=== PATIENT | male | born 1955 | race Two or more races ===

== ENCOUNTER 2020-07-28 12:36 | Inpatient (IN) | payer OTHER ==
[2020-07-28] MEDS ORDERED: SODIUM CHLORIDE 1,000 ML IV STA (14:25)
[2020-07-28] MEDS ORDERED: VANCOMYCIN 1 GM in D5W (PRE-DOCKED) 1,000 MG/250 ML IVPB ONE (14:25)
[2020-07-28] MEDS ORDERED: PIPERACILLIN/TAZOB 3.375 GM 3.375 GM in DEXTROSE 5%-WATER - 50 ML IVPB ONE (14:26)
[2020-07-28] MEDS ORDERED: VANCOMYCIN 1 GRAM (PRE-DOCKED) 1,000 MG/250 ML BAG IVPB ONE (14:42)
[2020-07-28] MEDS ORDERED: PIPERACILLIN/TAZOB 3.375 GM 3.375 GM/50 ML BAG IVPB ONE (14:43)
[2020-07-28 15:06] LABS: INR 1.1 (0.83-1.09); PROTHROMBIN TIME (PATIENT) 13.5 SEC (9.7-13.0)
[2020-07-28 15:09] LABS: BASO % 0.2 % (0-2.0); HEMATOCRIT 45.8 % (35.4-49); HEMOGLOBIN 15.5 GM/dL (11.7-16.9); LYMPH % 4.1 % (8-40); MCHC 33.8 g/dl (32.0-35.9); MEAN PLT VOLUME 9.6 fl (7.5-11.1); MONO % 7.7 % (3.8-10.2); PLATELET COUNT 152 K/MM3 (134-434); RBC 5.72 M/mm3 (4.00-5.60); RDW 15.1 % (11.9-15.9)
[2020-07-28 15:20] LABS: POTASSIUM 3.7 mmol/L (3.5-5.1)
[2020-07-28 15:22] LABS: ALBUMIN 3.8 g/dl (3.4-5.0); BLOOD UREA NITROGEN 50.8 mg/dL (7-18); CALCIUM 9.8 mg/dL (8.5-10.1)
[2020-07-28 15:25] LABS: CREATININE 2.4 mg/dL (0.55-1.3)
[2020-07-28 15:27] LABS: BILIRUBIN,TOTAL 0.8 mg/dL (0.2-1)
[2020-07-28 17:46] LABS: PLATELET ESTIMATE DECREASED
[2020-07-28] MEDS ORDERED: PIPERACILLIN/TAZOB 2.25 GM 2.25 GM in DEXTROSE 5%-WATER - 50 ML IVPB SCH (21:00)
[2020-07-28] MEDS ORDERED: PIPERACILLIN/TAZOBACTAM 2.25 GM VIAL IVPB ONE (21:47)
[2020-07-28] MEDS ORDERED: DEXTROSE 5%-WATER - 50 ML IVPB ONE (21:48)
[2020-07-28] MEDS: PIPERACILLIN/TAZOB 2.25 GM 2.25 GM in DEXTROSE 5%-WATER - 50 ML IVPB SCH (22:15)
[2020-07-28] MEDS: HEPARIN NA (PORCINE) 5,000 UNITS/ML 1ML VIAL SQ SCH (22:16)
[2020-07-28] MEDS: ATORVASTATIN CA 40 MG TABLET (FP) PO SCH (22:16)
[2020-07-28] MEDS: INSULIN SLIDING SCALE (NOVOLOG) 1 VIAL SQ SCH (22:26)
[2020-07-28 23:21] VITALS: BMI 29.7
[2020-07-28 23:36] LABS: EPI CELLS 1 /uL (0-25.1); HYALINE CASTS 1 /uL (0-3.1); URINE APPEARANCE CLEAR; URINE BACTERIA 33 /uL (0-1359); URINE BILIRUBIN NEGATIVE (NEGATIVE); URINE COLOR YELLOW; URINE GLUCOSE (UA) 2+ (NEGATIVE); URINE KETONE NEGATIVE (NEGATIVE); URINE LEUK ESTERASE NEGATIVE (NEGATIVE); URINE NITRITE NEGATIVE (NEGATIVE); URINE PROTEIN 2+ (NEGATIVE); URINE RBC 8 /uL (0-23.9); URINE UROBILINOGEN 0.2 mg/dL (0.2-1.0); URINE WBC 3 /uL (0-25.8)
[2020-07-29] MEDS ORDERED: DEXTROSE 5%-WATER - 50 ML IVPB ONE ×3 (01:24→18:36)
[2020-07-29] MEDS ORDERED: PIPERACILLIN/TAZOBACTAM 2.25 GM VIAL IVPB ONE ×3 (01:24→18:36)
[2020-07-29] MEDS: PIPERACILLIN/TAZOB 2.25 GM 2.25 GM in DEXTROSE 5%-WATER - 50 ML IVPB SCH ×2 (02:53→10:32)
[2020-07-29] MEDS ORDERED: VANCOMYCIN 1,000 MG in DEXTROSE 5%-WATER - 250 ML IVPB ONE ×2 (06:00→07:00)
[2020-07-29] MEDS ORDERED: PT OWN MED DRAWER 7, Y5N ONE ×2 (06:02→10:34)
[2020-07-29] MEDS: HEPARIN NA (PORCINE) 5,000 UNITS/ML 1ML VIAL SQ SCH ×3 (06:04→21:42)
[2020-07-29] MEDS ORDERED: VANCOMYCIN 1 GRAM (PRE-DOCKED) 1,000 MG/250 ML BAG IVPB ONE (06:06)
[2020-07-29] MEDS: INSULIN SLIDING SCALE (NOVOLOG) 1 VIAL SQ SCH ×4 (06:09→21:42)
[2020-07-29 09:06] LABS: HEMATOCRIT 41.8 % (35.4-49); HEMOGLOBIN 14.7 GM/dL (11.7-16.9); MCH 27.8 pg (25.7-33.7); MCHC 35.2 g/dl (32.0-35.9); MEAN CELL VOLUME 78.9 fl (80-96); MEAN PLT VOLUME 9.5 fl (7.5-11.1); PLATELET COUNT 119 K/MM3 (134-434); RBC 5.29 M/mm3 (4.00-5.60); RDW 15.3 % (11.9-15.9); WHITE BLOOD COUNT 10.8 K/mm3 (4.0-10.0)
[2020-07-29 09:29] LABS: POTASSIUM 3.3 mmol/L (3.5-5.1)
[2020-07-29 09:50] LABS: BLOOD UREA NITROGEN 46.8 mg/dL (7-18)
[2020-07-29 09:51] LABS: CALCIUM 9.2 mg/dL (8.5-10.1)
[2020-07-29 09:54] LABS: CREATININE 2.5 mg/dL (0.55-1.3); PHOSPHOROUS 3.3 mg/dL (2.5-4.9)
[2020-07-29] MEDS ORDERED: PATIENT'S OWN MEDICATION (NON-FORMULARY) (Amlodipine Besylate/Benazepril [Amlodipine-Benaz PO SCH (10:00)
[2020-07-29] MEDS: LISINOPRIL 20 MG TABLET PO SCH (10:31)
[2020-07-29] MEDS: CARVEDILOL 3.125 MG TABLET (FP) PO SCH ×2 (10:31→21:41)
[2020-07-29] MEDS: CLOPIDOGREL BISULFATE 75 MG TABLET (FP) PO SCH (10:31)
[2020-07-29] MEDS: amLODIPine BESYLATE 10 MG TABLET (FP) PO SCH (10:31)
[2020-07-29] MEDS: CHLORTHALIDONE 25 MG TABLET PO SCH (10:35)
[2020-07-29] MEDS ORDERED: INSULIN (NOVOLOG) ASPART 100 UNITS/ML 10ML VIAL ONE (11:42)
[2020-07-29] MEDS ORDERED: POTASSIUM CHLORIDE TABS 20 MEQ TABLET.ER (FP) PO ONE (12:50)
[2020-07-29] MEDS: ATORVASTATIN CA 40 MG TABLET (FP) PO SCH (21:41)
[2020-07-30] MEDS ORDERED: PIPERACILLIN/TAZOBACTAM 2.25 GM VIAL IVPB ONE ×3 (01:02→17:07)
[2020-07-30] MEDS ORDERED: DEXTROSE 5%-WATER - 50 ML IVPB ONE ×3 (01:02→17:08)
[2020-07-30] MEDS: PIPERACILLIN/TAZOB 2.25 GM 2.25 GM in DEXTROSE 5%-WATER - 50 ML IVPB SCH ×3 (01:38→17:12)
[2020-07-30] MEDS: HEPARIN NA (PORCINE) 5,000 UNITS/ML 1ML VIAL SQ SCH ×3 (06:41→21:31)
[2020-07-30] MEDS: INSULIN SLIDING SCALE (NOVOLOG) 1 VIAL SQ SCH ×4 (06:41→21:36)
[2020-07-30 09:10] LABS: BASO % 0.6 % (0-2.0); EOS % 1.4 % (0-4.5); HEMATOCRIT 44.4 % (35.4-49); HEMOGLOBIN 15.2 GM/dL (11.7-16.9); LYMPH % 12.6 % (8-40); MCH 27.4 pg (25.7-33.7); MCHC 34.3 g/dl (32.0-35.9); MEAN CELL VOLUME 79.7 fl (80-96); MEAN PLT VOLUME 9.8 fl (7.5-11.1); MONO % 9.2 % (3.8-10.2); NEUT % 76.2 % (42.8-82.8); PLATELET COUNT 137 K/MM3 (134-434); RBC 5.57 M/mm3 (4.00-5.60); RDW 15.2 % (11.9-15.9); WHITE BLOOD COUNT 8.6 K/mm3 (4.0-10.0)
[2020-07-30] MEDS: CHLORTHALIDONE 25 MG TABLET PO SCH (09:25)
[2020-07-30] MEDS: CARVEDILOL 3.125 MG TABLET (FP) PO SCH ×2 (09:26→21:31)
[2020-07-30] MEDS: amLODIPine BESYLATE 10 MG TABLET (FP) PO SCH (09:26)
[2020-07-30] MEDS: CLOPIDOGREL BISULFATE 75 MG TABLET (FP) PO SCH (09:26)
[2020-07-30] MEDS: LISINOPRIL 20 MG TABLET PO SCH (09:26)
[2020-07-30 09:39] LABS: POTASSIUM 3.6 mmol/L (3.5-5.1)
[2020-07-30 09:54] LABS: BLOOD UREA NITROGEN 44.6 mg/dL (7-18); CALCIUM 10.2 mg/dL (8.5-10.1)
[2020-07-30 09:57] LABS: CREATININE 2.6 mg/dL (0.55-1.3)
[2020-07-30 09:58] LABS: ALBUMIN 3.6 g/dl (3.4-5.0); PHOSPHOROUS 3.1 mg/dL (2.5-4.9)
[2020-07-30 09:59] LABS: BILIRUBIN,TOTAL 2.1 mg/dL (0.2-1)
[2020-07-30 10:00] LABS: INR 1.07 (0.83-1.09); PROTHROMBIN TIME (PATIENT) 13.1 SEC (9.7-13.0)
[2020-07-30 10:02] LABS: ACTIVATED PTT 39.2 SECONDS (25.2-36.5)
[2020-07-30 10:03] LABS: TOT PROT 7.8 g/dl (6.4-8.2)
[2020-07-30] MEDS: COLLAGENASE CLOSTRIDIUM HIST. 30 GRAMS TUBE TP SCH (12:14)
[2020-07-30] MEDS: ATORVASTATIN CA 40 MG TABLET (FP) PO SCH (21:31)
[2020-07-31] MEDS ORDERED: PIPERACILLIN/TAZOBACTAM 2.25 GM VIAL IVPB ONE ×3 (00:56→18:45)
[2020-07-31] MEDS ORDERED: DEXTROSE 5%-WATER - 50 ML IVPB ONE ×3 (00:56→18:45)
[2020-07-31] MEDS: PIPERACILLIN/TAZOB 2.25 GM 2.25 GM in DEXTROSE 5%-WATER - 50 ML IVPB SCH ×4 (01:15→18:56)
[2020-07-31] MEDS: INSULIN SLIDING SCALE (NOVOLOG) 1 VIAL SQ SCH ×4 (06:34→22:02)
[2020-07-31] MEDS: HEPARIN NA (PORCINE) 5,000 UNITS/ML 1ML VIAL SQ SCH ×3 (06:34→21:52)
[2020-07-31 10:09] LABS: BASO % 0.8 % (0-2.0); HEMATOCRIT 47.4 % (35.4-49); HEMOGLOBIN 16.5 GM/dL (11.7-16.9); MCH 27.7 pg (25.7-33.7); MCHC 34.9 g/dl (32.0-35.9); MEAN CELL VOLUME 79.3 fl (80-96); MEAN PLT VOLUME 9.4 fl (7.5-11.1); MONO % 10.4 % (3.8-10.2); NEUT % 71.8 % (42.8-82.8); PLATELET COUNT 148 K/MM3 (134-434); RBC 5.98 M/mm3 (4.00-5.60); RDW 15.1 % (11.9-15.9); WHITE BLOOD COUNT 7.3 K/mm3 (4.0-10.0)
[2020-07-31] MEDS ORDERED: PT OWN MED DRAWER 7, Y5N ONE ×2 (10:15→18:54)
[2020-07-31] MEDS: CLOPIDOGREL BISULFATE 75 MG TABLET (FP) PO SCH (10:33)
[2020-07-31] MEDS: amLODIPine BESYLATE 10 MG TABLET (FP) PO SCH (10:33)
[2020-07-31] MEDS: CARVEDILOL 3.125 MG TABLET (FP) PO SCH ×2 (10:33→21:52)
[2020-07-31] MEDS: LISINOPRIL 20 MG TABLET PO SCH (10:33)
[2020-07-31] MEDS: CHLORTHALIDONE 25 MG TABLET PO SCH (10:34)
[2020-07-31 10:55] LABS: BLOOD UREA NITROGEN 42.8 mg/dL (7-18)
[2020-07-31 10:57] LABS: CALCIUM 10.5 mg/dL (8.5-10.1)
[2020-07-31 10:58] LABS: CREATININE 2.6 mg/dL (0.55-1.3); PHOSPHOROUS 3.6 mg/dL (2.5-4.9)
[2020-07-31] MEDS: COLLAGENASE CLOSTRIDIUM HIST. 30 GRAMS TUBE TP SCH (16:58)
[2020-07-31] MEDS: ATORVASTATIN CA 40 MG TABLET (FP) PO SCH (21:52)
[2020-08-01] MEDS ORDERED: DEXTROSE 5%-WATER - 50 ML IVPB ONE ×3 (02:50→17:02)
[2020-08-01] MEDS ORDERED: PIPERACILLIN/TAZOBACTAM 2.25 GM VIAL IVPB ONE ×4 (02:50→18:04)
[2020-08-01] MEDS: PIPERACILLIN/TAZOB 2.25 GM 2.25 GM in DEXTROSE 5%-WATER - 50 ML IVPB SCH ×3 (02:56→19:17)
[2020-08-01] MEDS: INSULIN SLIDING SCALE (NOVOLOG) 1 VIAL SQ SCH ×4 (06:26→22:21)
[2020-08-01] MEDS: HEPARIN NA (PORCINE) 5,000 UNITS/ML 1ML VIAL SQ SCH ×3 (06:26→22:21)
[2020-08-01 10:00] LABS: BASO % 1.1 % (0-2.0); EOS % 2.3 % (0-4.5); HEMATOCRIT 45.4 % (35.4-49); HEMOGLOBIN 15.6 GM/dL (11.7-16.9); LYMPH % 12.3 % (8-40); MCH 27.4 pg (25.7-33.7); MCHC 34.3 g/dl (32.0-35.9); MEAN CELL VOLUME 79.8 fl (80-96); MEAN PLT VOLUME 9.4 fl (7.5-11.1); MONO % 8.6 % (3.8-10.2); NEUT % 75.7 % (42.8-82.8); PLATELET COUNT 156 K/MM3 (134-434); RDW 14.8 % (11.9-15.9); WHITE BLOOD COUNT 7.3 K/mm3 (4.0-10.0)
[2020-08-01] MEDS: CARVEDILOL 3.125 MG TABLET (FP) PO SCH (10:13)
[2020-08-01] MEDS: LISINOPRIL 20 MG TABLET PO SCH (10:13)
[2020-08-01] MEDS: amLODIPine BESYLATE 10 MG TABLET (FP) PO SCH (10:13)
[2020-08-01] MEDS: CLOPIDOGREL BISULFATE 75 MG TABLET (FP) PO SCH (10:13)
[2020-08-01] MEDS: CHLORTHALIDONE 25 MG TABLET PO SCH (10:17)
[2020-08-01 10:27] LABS: CALCIUM 9.6 mg/dL (8.5-10.1)
[2020-08-01 10:28] LABS: ALBUMIN 3.4 g/dl (3.4-5.0); BLOOD UREA NITROGEN 47.4 mg/dL (7-18); MAGNESIUM 1.9 mg/dL (1.8-2.4)
[2020-08-01 10:29] LABS: CREATININE 2.9 mg/dL (0.55-1.3); PHOSPHOROUS 3.3 mg/dL (2.5-4.9)
[2020-08-01 10:31] LABS: TOT PROT 7.9 g/dl (6.4-8.2)
[2020-08-01 10:35] LABS: BILIRUBIN,TOTAL 0.8 mg/dL (0.2-1)
[2020-08-01] MEDS: COLLAGENASE CLOSTRIDIUM HIST. 30 GRAMS TUBE TP SCH (10:40)
[2020-08-01] MEDS ORDERED: SODIUM CHLORIDE 0.45% 1,000 ML IV SCH (10:45)
[2020-08-01] MEDS: CARVEDILOL 6.25 MG TABLET (FP) PO SCH (22:20)
[2020-08-01] MEDS: ATORVASTATIN CA 40 MG TABLET (FP) PO SCH (22:20)
[2020-08-02] MEDS ORDERED: PIPERACILLIN/TAZOBACTAM 2.25 GM VIAL IVPB ONE ×3 (02:58→17:18)
[2020-08-02] MEDS ORDERED: DEXTROSE 5%-WATER - 50 ML IVPB ONE ×3 (02:58→17:19)
[2020-08-02] MEDS: PIPERACILLIN/TAZOB 2.25 GM 2.25 GM in DEXTROSE 5%-WATER - 50 ML IVPB SCH ×3 (03:00→17:30)
[2020-08-02] MEDS: HEPARIN NA (PORCINE) 5,000 UNITS/ML 1ML VIAL SQ SCH ×3 (06:43→21:05)
[2020-08-02] MEDS: INSULIN SLIDING SCALE (NOVOLOG) 1 VIAL SQ SCH ×4 (06:45→21:06)
[2020-08-02] MEDS ORDERED: PT OWN MED DRAWER 7, Y5N ONE ×3 (08:37→20:37)
[2020-08-02] MEDS: amLODIPine BESYLATE 10 MG TABLET (FP) PO SCH ×2 (08:45→10:14)
[2020-08-02] MEDS: CLOPIDOGREL BISULFATE 75 MG TABLET (FP) PO SCH ×2 (08:45→10:14)
[2020-08-02] MEDS: CARVEDILOL 6.25 MG TABLET (FP) PO SCH ×3 (08:45→21:06)
[2020-08-02 09:21] LABS: EOS % 3.1 % (0-4.5); HEMATOCRIT 47.9 % (35.4-49); HEMOGLOBIN 16.6 GM/dL (11.7-16.9); MCH 27.5 pg (25.7-33.7); MCHC 34.6 g/dl (32.0-35.9); MEAN CELL VOLUME 79.7 fl (80-96); MONO % 9.6 % (3.8-10.2); NEUT % 70.3 % (42.8-82.8); PLATELET COUNT 160 K/MM3 (134-434); RBC 6.01 M/mm3 (4.00-5.60); WHITE BLOOD COUNT 7.8 K/mm3 (4.0-10.0)
[2020-08-02 09:49] LABS: INR 1.07 (0.83-1.09); POTASSIUM 3.8 mmol/L (3.5-5.1); PROTHROMBIN TIME (PATIENT) 12.9 SEC (9.7-13.0)
[2020-08-02 09:52] LABS: ACTIVATED PTT 42.4 SECONDS (25.2-36.5)
[2020-08-02 10:07] LABS: ALBUMIN 3.8 g/dl (3.4-5.0); BLOOD UREA NITROGEN 45.9 mg/dL (7-18)
[2020-08-02 10:08] LABS: MAGNESIUM 2.1 mg/dL (1.8-2.4)
[2020-08-02 10:10] LABS: CREATININE 2.6 mg/dL (0.55-1.3)
[2020-08-02 10:11] LABS: BILIRUBIN,TOTAL 0.8 mg/dL (0.2-1); TOT PROT 8.7 g/dl (6.4-8.2)
[2020-08-02] MEDS: COLLAGENASE CLOSTRIDIUM HIST. 30 GRAMS TUBE TP SCH (10:14)
[2020-08-02] MEDS: ATORVASTATIN CA 40 MG TABLET (FP) PO SCH (21:06)
[2020-08-03] MEDS ORDERED: PIPERACILLIN/TAZOBACTAM 2.25 GM VIAL IVPB ONE ×3 (00:31→17:29)
[2020-08-03] MEDS ORDERED: DEXTROSE 5%-WATER - 50 ML IVPB ONE ×3 (00:32→17:29)
[2020-08-03] MEDS: PIPERACILLIN/TAZOB 2.25 GM 2.25 GM in DEXTROSE 5%-WATER - 50 ML IVPB SCH ×3 (01:05→17:54)
[2020-08-03] MEDS: amLODIPine BESYLATE 10 MG TABLET (FP) PO SCH ×3 (05:57→10:00)
[2020-08-03] MEDS: HEPARIN NA (PORCINE) 5,000 UNITS/ML 1ML VIAL SQ SCH (05:58)
[2020-08-03] MEDS: INSULIN SLIDING SCALE (NOVOLOG) 1 VIAL SQ SCH ×4 (06:19→22:18)
[2020-08-03] MEDS: CARVEDILOL 6.25 MG TABLET (FP) PO SCH ×3 (08:55→22:18)
[2020-08-03] MEDS: CLOPIDOGREL BISULFATE 75 MG TABLET (FP) PO SCH (09:01)
[2020-08-03] MEDS: COLLAGENASE CLOSTRIDIUM HIST. 30 GRAMS TUBE TP SCH (09:02)
[2020-08-03 09:12] LABS: POTASSIUM 3.7 mmol/L (3.5-5.1)
[2020-08-03 09:17] LABS: CALCIUM 9.7 mg/dL (8.5-10.1)
[2020-08-03 09:18] LABS: BLOOD UREA NITROGEN 44.7 mg/dL (7-18)
[2020-08-03 09:21] LABS: CREATININE 2.6 mg/dL (0.55-1.3)
[2020-08-03] MEDS ORDERED: FUROSEMIDE 40 MG TABLET (FP) PO SCH (10:45)
[2020-08-03] MEDS ORDERED: LIDOCAINE HCL 1%, 10 MG/ML (20ML VIAL) ONE (11:20)
[2020-08-03] MEDS ORDERED: ONDANSETRON 4 MG/2 ML VIAL IVPUSH PRN ×2 (11:57→13:29)
[2020-08-03] MEDS ORDERED: ACETAMINOPHEN 325 MG TABLET (FP) PO PRN (11:57)
[2020-08-03] MEDS ORDERED: LACTATED RINGERS SOLUTION 1,000 ML IV SCH (12:00)
[2020-08-03] MEDS ORDERED: PROPOFOL 20 ML ONE (12:08)
[2020-08-03] MEDS ORDERED: MIDAZOLAM HCL 2 MG/2 ML SINGLE DOSE VIAL ONE (12:08)
[2020-08-03] MEDS ORDERED: LIDOCAINE HCL/PF 2% SDV 5ML VIAL ONE (12:08)
[2020-08-03] MEDS ORDERED: BUPIVACAINE HCL 0.5% 250 MG/50 ML VIAL IJ ONE (12:17)
[2020-08-03] MEDS ORDERED: LIDOCAINE HCL 1% PRESERVATIVE FREE - 30ML VIAL IJ ONE (12:17)
[2020-08-03] MEDS: LACTATED RINGERS SOLUTION 1,000 ML IV SCH (14:00)
[2020-08-03 14:39] LABS: EOS % 1.9 % (0-4.5); HEMATOCRIT 44.5 % (35.4-49); HEMOGLOBIN 15.1 GM/dL (11.7-16.9); MCHC 33.9 g/dl (32.0-35.9); MEAN CELL VOLUME 79.8 fl (80-96); MONO % 10.6 % (3.8-10.2); NEUT % 73.5 % (42.8-82.8); PLATELET COUNT 153 K/MM3 (134-434); RBC 5.58 M/mm3 (4.00-5.60); RDW 14.9 % (11.9-15.9); WHITE BLOOD COUNT 8.5 K/mm3 (4.0-10.0)
[2020-08-03] MEDS: ATORVASTATIN CA 40 MG TABLET (FP) PO SCH (22:18)
[2020-08-04] MEDS ORDERED: PIPERACILLIN/TAZOBACTAM 2.25 GM VIAL IVPB ONE ×2 (01:09→09:46)
[2020-08-04] MEDS ORDERED: DEXTROSE 5%-WATER - 50 ML IVPB ONE ×2 (01:09→09:46)
[2020-08-04] MEDS: PIPERACILLIN/TAZOB 2.25 GM 2.25 GM in DEXTROSE 5%-WATER - 50 ML IVPB SCH (01:25)
[2020-08-04] MEDS: LACTATED RINGERS SOLUTION 1,000 ML IV SCH (05:31)
[2020-08-04] MEDS: INSULIN SLIDING SCALE (NOVOLOG) 1 VIAL SQ SCH ×4 (06:48→22:26)
[2020-08-04 09:27] LABS: HEMATOCRIT 44.3 % (35.4-49); HEMOGLOBIN 15.3 GM/dL (11.7-16.9); MCH 27.6 pg (25.7-33.7); MCHC 34.5 g/dl (32.0-35.9); MEAN CELL VOLUME 79.8 fl (80-96); MEAN PLT VOLUME 9.2 fl (7.5-11.1); PLATELET COUNT 136 K/MM3 (134-434); RBC 5.55 M/mm3 (4.00-5.60); RDW 14.8 % (11.9-15.9); WHITE BLOOD COUNT 9.9 K/mm3 (4.0-10.0)
[2020-08-04 09:53] LABS: POTASSIUM 3.7 mmol/L (3.5-5.1)
[2020-08-04] MEDS ORDERED: amLODIPine BESYLATE 10 MG TABLET (FP) PO SCH (10:00)
[2020-08-04 10:25] LABS: ALBUMIN 3.4 g/dl (3.4-5.0); CALCIUM 9.8 mg/dL (8.5-10.1)
[2020-08-04 10:26] LABS: BLOOD UREA NITROGEN 38.1 mg/dL (7-18)
[2020-08-04 10:29] LABS: CREATININE 2.5 mg/dL (0.55-1.3)
[2020-08-04 10:30] LABS: BILIRUBIN,TOTAL 0.6 mg/dL (0.2-1); TOT PROT 7.6 g/dl (6.4-8.2)
[2020-08-04] MEDS: CARVEDILOL 6.25 MG TABLET (FP) PO SCH ×2 (10:45→22:26)
[2020-08-04] MEDS: FUROSEMIDE 40 MG TABLET (FP) PO SCH (10:46)
[2020-08-04] MEDS ORDERED: INSULIN (NOVOLOG) ASPART 100 UNITS/ML 10ML VIAL ONE (11:44)
[2020-08-04] MEDS: COLLAGENASE CLOSTRIDIUM HIST. 30 GRAMS TUBE TP SCH (17:53)
[2020-08-04] MEDS: LISINOPRIL 20 MG TABLET PO SCH (18:00)
[2020-08-04] MEDS: ATORVASTATIN CA 40 MG TABLET (FP) PO SCH (22:26)
[2020-08-05] MEDS: INSULIN SLIDING SCALE (NOVOLOG) 1 VIAL SQ SCH ×4 (06:34→22:12)
[2020-08-05 09:51] LABS: POTASSIUM 3.8 mmol/L (3.5-5.1)
[2020-08-05] MEDS: FUROSEMIDE 40 MG TABLET (FP) PO SCH (09:59)
[2020-08-05] MEDS: CARVEDILOL 12.5 MG TABLET (FP) PO SCH ×2 (09:59→22:12)
[2020-08-05] MEDS: LISINOPRIL 20 MG TABLET PO SCH (10:00)
[2020-08-05] MEDS: COLLAGENASE CLOSTRIDIUM HIST. 30 GRAMS TUBE TP SCH (10:09)
[2020-08-05 10:48] LABS: CALCIUM 10.6 mg/dL (8.5-10.1)
[2020-08-05 10:49] LABS: BLOOD UREA NITROGEN 44.6 mg/dL (7-18)
[2020-08-05 10:53] LABS: CREATININE 2.5 mg/dL (0.55-1.3)
[2020-08-05] MEDS ORDERED: INSULIN (NOVOLOG) ASPART 100 UNITS/ML 10ML VIAL ONE ×2 (11:05→17:00)
[2020-08-05] MEDS: ATORVASTATIN CA 40 MG TABLET (FP) PO SCH (22:12)
[2020-08-06 06:08] LABS: HEP B CORE AB, TOT Negative (Negative)
[2020-08-06] MEDS: INSULIN SLIDING SCALE (NOVOLOG) 1 VIAL SQ SCH ×4 (06:25→21:38)
[2020-08-06] MEDS: LISINOPRIL 20 MG TABLET PO SCH ×2 (08:35→12:29)
[2020-08-06] MEDS: CARVEDILOL 12.5 MG TABLET (FP) PO SCH ×3 (08:36→21:35)
[2020-08-06] MEDS: FUROSEMIDE 40 MG TABLET (FP) PO SCH ×2 (08:36→12:29)
[2020-08-06] MEDS: COLLAGENASE CLOSTRIDIUM HIST. 30 GRAMS TUBE TP SCH (13:22)
[2020-08-06] MEDS: ACETAMINOPHEN 325 MG TABLET (FP) PO PRN (18:55)
[2020-08-06] MEDS: ATORVASTATIN CA 40 MG TABLET (FP) PO SCH (21:35)
[2020-08-06] MEDS: INSULIN (LEVEMIR) 100 UNITS/ML UNITS SQ SCH (21:37)
[2020-08-07] MEDS: INSULIN SLIDING SCALE (NOVOLOG) 1 VIAL SQ SCH ×4 (06:35→21:46)
[2020-08-07] MEDS: INSULIN (LEVEMIR) 100 UNITS/ML UNITS SQ SCH ×2 (06:35→21:48)
[2020-08-07] MEDS: ACETAMINOPHEN 325 MG TABLET (FP) PO PRN (06:56)
[2020-08-07] MEDS ORDERED: INSULIN (LEVEMIR) 100 UNITS/ML UNITS SQ ONE (07:00)
[2020-08-07] MEDS: CARVEDILOL 12.5 MG TABLET (FP) PO SCH ×2 (10:30→21:46)
[2020-08-07] MEDS: FUROSEMIDE 40 MG TABLET (FP) PO SCH (10:30)
[2020-08-07] MEDS: LISINOPRIL 20 MG TABLET PO SCH (10:30)
[2020-08-07] MEDS: COLLAGENASE CLOSTRIDIUM HIST. 30 GRAMS TUBE TP SCH (13:16)
[2020-08-07] MEDS: ATORVASTATIN CA 40 MG TABLET (FP) PO SCH (21:46)
[2020-08-08] MEDS: INSULIN (LEVEMIR) 100 UNITS/ML UNITS SQ SCH ×2 (06:14→22:37)
[2020-08-08] MEDS: INSULIN SLIDING SCALE (NOVOLOG) 1 VIAL SQ SCH ×4 (06:15→22:37)
[2020-08-08] MEDS: LISINOPRIL 20 MG TABLET PO SCH (09:22)
[2020-08-08] MEDS: FUROSEMIDE 40 MG TABLET (FP) PO SCH (09:22)
[2020-08-08] MEDS: CARVEDILOL 12.5 MG TABLET (FP) PO SCH ×2 (09:22→22:36)
[2020-08-08] MEDS: COLLAGENASE CLOSTRIDIUM HIST. 30 GRAMS TUBE TP SCH (11:13)
[2020-08-08] MEDS: ATORVASTATIN CA 40 MG TABLET (FP) PO SCH (22:37)
[2020-08-09] MEDS: INSULIN (LEVEMIR) 100 UNITS/ML UNITS SQ SCH (06:49)
[2020-08-09] MEDS: INSULIN SLIDING SCALE (NOVOLOG) 1 VIAL SQ SCH ×2 (06:49→11:19)
[2020-08-09] MEDS ORDERED: INSULIN (NOVOLOG) ASPART 100 UNITS/ML 10ML VIAL ONE ×2 (06:59→11:18)
[2020-08-09] MEDS ORDERED: INSULIN (LEVEMIR) 100 UNITS/ML UNITS SQ ONE (06:59)
[2020-08-09 09:20] LABS: POTASSIUM 3.7 mmol/L (3.5-5.1)
[2020-08-09 09:37] LABS: ALBUMIN 3.7 g/dl (3.4-5.0); BLOOD UREA NITROGEN 64.3 mg/dL (7-18); CALCIUM 10.1 mg/dL (8.5-10.1); MAGNESIUM 2.1 mg/dL (1.8-2.4)
[2020-08-09 09:40] LABS: CREATININE 2.8 mg/dL (0.55-1.3); PHOSPHOROUS 4.2 mg/dL (2.5-4.9)
[2020-08-09 09:42] LABS: BILIRUBIN,TOTAL 0.6 mg/dL (0.2-1); TOT PROT 8.8 g/dl (6.4-8.2)
[2020-08-09] MEDS ORDERED: PT OWN MED DRAWER 7, Y5N ONE (09:46)
[2020-08-09] MEDS: LISINOPRIL 20 MG TABLET PO SCH (09:50)
[2020-08-09] MEDS: FUROSEMIDE 40 MG TABLET (FP) PO SCH (09:51)
[2020-08-09] MEDS: CARVEDILOL 12.5 MG TABLET (FP) PO SCH (09:51)
[2020-08-09] MEDS: COLLAGENASE CLOSTRIDIUM HIST. 30 GRAMS TUBE TP SCH (09:56)
[2020-08-09 12:05] LABS: BASO % 1.3 % (0-2.0); EOS % 1.7 % (0-4.5); HEMATOCRIT 45.7 % (35.4-49); LYMPH % 16.2 % (8-40); MCH 27.8 pg (25.7-33.7); MEAN CELL VOLUME 79.4 fl (80-96); MONO % 8.3 % (3.8-10.2); NEUT % 72.5 % (42.8-82.8); PLATELET COUNT 176 K/MM3 (134-434); RBC 5.76 M/mm3 (4.00-5.60); RDW 15.1 % (11.9-15.9); WHITE BLOOD COUNT 9.9 K/mm3 (4.0-10.0)
[2020-08-09 15:13] VITALS: BP 148/81; PULSE 73; TEMP 99.2
== END 2020-08-09 16:28 | DRG 629 ==
LOC: JER 12:36 → JERBED 16:49 → J6S 18:46
PROVIDERS: ADMIT Internal Medicine; ATTEND Student in an Organized Health Care Education/Training Program
PROC: 0QBN0ZZ Excision of Right Metatarsal, Open Approach (ICD-10-PCS; principal; 2020-08-03 11:00)
DX: E11.621 Type 2 diabetes mellitus with foot ulcer (principal); L03.115 Cellulitis of right lower limb; L97.818 Non-pressure chronic ulcer of other part of right lower leg with other specified severity; N17.9 Acute kidney failure, unspecified; I25.10 Atherosclerotic heart disease of native coronary artery without angina pectoris; I10 Essential (primary) hypertension; E78.5 Hyperlipidemia, unspecified; E11.51 Type 2 diabetes mellitus with diabetic peripheral angiopathy without gangrene; I12.9 Hypertensive chronic kidney disease with stage 1 through stage 4 chronic kidney disease, or unspecified chronic kidney disease; E11.22 Type 2 diabetes mellitus with diabetic chronic kidney disease; N18.30 Chronic kidney disease, stage 3 unspecified; R94.31 Abnormal electrocardiogram [ECG] [EKG]; N28.1 Cyst of kidney, acquired; M89.9 Disorder of bone, unspecified; Z89.429 Acquired absence of other toe(s), unspecified side
CPT/HCPCS: 36415; 71046-TC-FY; 73630-TC-RT-FY; 76775-TC; 80048; 80053; 81003; 82565; 82962; 83036; 83605; 83735; 84100; 84540; 85025; 85027; 85610; 85651; 85730; 86038; 86140; 86704; 86803; 86850; 86900; 86901; 87040; 87086; 87340; 93005; 93010; 93306-TC; 94760; 97116-GP; 97162-GP; 99285-25; C9803; G0463-25; J1644; U0003

== ENCOUNTER 2021-02-23 04:30 | Day surgery (SDC) | payer OTHER ==
[2021-02-17 16:42] VITALS: BMI 33.8
[~2021-02-23 04:30] MED LIST: ACETAMINOPHEN 325 MG TABLET (FP) PO PRN
[2021-02-23] MEDS ORDERED: EPINEPHrine/PF 1 MG/1 ML (1:1,000) AMPULE ONE (07:16)
[2021-02-23] MEDS ORDERED: BUPIVACAINE HCL/PF 0.75% 10 ML VIAL ONE (07:16)
[2021-02-23] MEDS ORDERED: POVIDONE-IODINE 5% OPHTHALMIC PREP 30 ML SOLUTION ONE (07:17)
[2021-02-23] MEDS ORDERED: LIDOCAINE HCL/PF 2% SDV 5ML VIAL ONE (07:17)
[2021-02-23] MEDS ORDERED: TETRACAINE 0.5% OPHTH SOLN 2 ML BOTTLE ONE (07:17)
[2021-02-23] MEDS ORDERED: BSS (NA/CA/MG/K) BALANCED SALT SOLUTION OPHTH SOLN 15 ML BOTTLE ONE (07:17)
[2021-02-23] MEDS ORDERED: LIDOCAINE HCL/PF 1% SDV 5ML VIAL ONE (07:17)
[2021-02-23] MEDS ORDERED: MIDAZOLAM HCL 2 MG/2 ML SINGLE DOSE VIAL ONE (07:36)
[2021-02-23] MEDS ORDERED: TETRACAINE 0.5% OPHTH SOLN 2 ML BOTTLE OS ONE ×2 (07:43→10:29)
[2021-02-23] MEDS ORDERED: POVIDONE-IODINE 5% OPHTHALMIC PREP 30 ML SOLUTION OS ONE ×2 (07:43→10:31)
[2021-02-23] MEDS ORDERED: LIDOCAINE HCL 1% PRESERVATIVE FREE - 30ML VIAL IO ONE ×2 (07:43→10:36)
[2021-02-23] MEDS ORDERED: BSS (NA/CA/MG/K) BALANCED SALT SOLUTION OPHTH SOLN 15 ML BOTTLE IO ONE ×2 (07:44→10:40)
[2021-02-23] MEDS ORDERED: CHONDROITIN SU A/HYALUR SOD 1 KIT IO ONE ×2 (07:44→10:48)
[2021-02-23] MEDS ORDERED: EPINEPHrine/PF 1 MG/1 ML (1:1,000) AMPULE SQ ONE ×2 (07:44→10:55)
[2021-02-23] MEDS ORDERED: OFLOXACIN 0.3% OPHTHALMIC SOLUTION 5 ML BOTTLE ONE (08:23)
[2021-02-23] MEDS ORDERED: TROPICAMIDE 1% OPHTH SOLN 15 ML BOTTLE ONE (08:23)
[2021-02-23] MEDS ORDERED: PHENYLEPHRINE 2.5% OPTHALMIC DROP BOTTLE ONE (08:24)
[2021-02-23] MEDS ORDERED: KETOROLAC TROMETHAMINE 0.5% EYE DROP 1 DROP DROPS ONE (08:24)
[2021-02-23] MEDS ORDERED: CYCLOPENTOLATE HCL 1% OPHTH SOLN 2 ML BOTTLE ONE (08:24)
[2021-02-23] MEDS: OFLOXACIN 0.3% OPHTHALMIC SOLUTION 5 ML BOTTLE OP SCH ×3 (08:35→08:53)
[2021-02-23] MEDS: PHENYLEPHRINE 2.5% OPHTH SOLN 15 ML BOTTLE OP SCH ×3 (08:35→08:53)
[2021-02-23] MEDS: CYCLOPENTOLATE HCL 1% OPHTH SOLN 2 ML BOTTLE OP SCH ×3 (08:35→08:53)
[2021-02-23] MEDS: TROPICAMIDE 1% OPHTH SOLN 15 ML BOTTLE OP SCH ×3 (08:35→08:54)
[2021-02-23] MEDS: KETOROLAC TROMETHAMINE 0.5% EYE DROP 1 DROP DROPS OP SCH ×3 (08:35→08:53)
[2021-02-23] MEDS ORDERED: TRYPAN BLUE 0.5 ML DISP.SYRIN IO ONE (10:39)
[2021-02-23 11:58] VITALS: BP 143/79; PULSE 72; TEMP 98.1
== END 2021-02-23 12:00 | disposition home or self-care (01) ==
LOC: JASU-SURG 04:30
PROVIDERS: ATTEND Ophthalmology
PROC: 08RK3JZ Replacement of Left Lens with Synthetic Substitute, Percutaneous Approach (ICD-10-PCS; principal; 2021-02-23 10:00)
DX: H26.9 Unspecified cataract (principal)
CPT/HCPCS: 82962

== ENCOUNTER 2021-03-09 04:45 | Day surgery (SDC) | payer OTHER ==
[2021-03-08 16:00] VITALS: BMI 33.6
[~2021-03-09 04:45] MED LIST changes: +BSS (NA/CA/MG/K) BALANCED SALT SOLUTION OPHTH SOLN 15 ML BOTTLE OD ONE; +CHONDROITIN SU A/HYALUR SOD 1 KIT IO ONE; +EPINEPHrine/PF 1 MG/1 ML (1:1,000) AMPULE IO ONE; +LIDOCAINE HCL 1% PRESERVATIVE FREE - 30ML VIAL IO ONE; +POVIDONE-IODINE 5% OPHTHALMIC PREP 30 ML SOLUTION OD ONE; +TETRACAINE 0.5% OPHTH SOLN 2 ML BOTTLE OD ONE
[2021-03-09] MEDS ORDERED: EPINEPHrine/PF 1 MG/1 ML (1:1,000) AMPULE ONE (07:28)
[2021-03-09] MEDS ORDERED: BUPIVACAINE HCL/PF 0.75% 10 ML VIAL ONE (07:29)
[2021-03-09] MEDS ORDERED: LIDOCAINE HCL/PF 2% SDV 5ML VIAL ONE ×2 (07:29→10:05)
[2021-03-09] MEDS ORDERED: POVIDONE-IODINE 5% OPHTHALMIC PREP 30 ML SOLUTION ONE (07:29)
[2021-03-09] MEDS ORDERED: LIDOCAINE HCL/PF 1% SDV 5ML VIAL ONE (07:29)
[2021-03-09] MEDS ORDERED: TETRACAINE 0.5% OPHTH SOLN 2 ML BOTTLE ONE (07:29)
[2021-03-09] MEDS ORDERED: MIDAZOLAM HCL 2 MG/2 ML SINGLE DOSE VIAL ONE (07:48)
[2021-03-09] MEDS: OFLOXACIN 0.3% OPHTHALMIC SOLUTION 5 ML BOTTLE OP SCH ×3 (08:21→08:51)
[2021-03-09] MEDS: KETOROLAC TROMETHAMINE 0.5% EYE DROP 1 DROP DROPS OP SCH ×3 (08:21→08:51)
[2021-03-09] MEDS: CYCLOPENTOLATE HCL 1% OPHTH SOLN 2 ML BOTTLE OP SCH ×3 (08:21→08:51)
[2021-03-09] MEDS: PHENYLEPHRINE 2.5% OPHTH SOLN 15 ML BOTTLE OP SCH ×3 (08:22→08:51)
[2021-03-09] MEDS: TROPICAMIDE 1% OPHTH SOLN 15 ML BOTTLE OP SCH ×3 (08:22→08:52)
[2021-03-09] MEDS ORDERED: PROPOFOL 20 ML ONE (10:03)
[2021-03-09] MEDS ORDERED: GLYCOPYRROLATE 0.2 MG/1 ML VIAL ONE (10:05)
[2021-03-09] MEDS ORDERED: LIDOCAINE HCL/PF 2% SDV 5ML VIAL INF ONE (10:12)
[2021-03-09] MEDS ORDERED: BUPIVACAINE HCL/PF 0.75% 10 ML VIAL RB ONE (10:12)
[2021-03-09] MEDS ORDERED: POVIDONE-IODINE 5% OPHTHALMIC PREP 30 ML SOLUTION OD ONE (10:18)
[2021-03-09] MEDS ORDERED: BSS (NA/CA/MG/K) BALANCED SALT SOLUTION OPHTH SOLN 15 ML BOTTLE OD ONE (10:25)
[2021-03-09] MEDS ORDERED: LIDOCAINE HCL 1% PRESERVATIVE FREE - 30ML VIAL IO ONE (10:26)
[2021-03-09] MEDS ORDERED: TRYPAN BLUE 0.5 ML DISP.SYRIN IO ONE (10:27)
[2021-03-09] MEDS ORDERED: CHONDROITIN SU A/HYALUR SOD 1 KIT IO ONE (10:27)
[2021-03-09] MEDS ORDERED: EPINEPHrine/PF 1 MG/1 ML (1:1,000) AMPULE IO ONE (10:30)
[2021-03-09 11:39] VITALS: BP 149/89; PULSE 87; TEMP 98.1
== END 2021-03-09 11:41 | disposition home or self-care (01) ==
LOC: JASU-SURG 04:45
PROVIDERS: ATTEND Ophthalmology
PROC: 08RJ3JZ Replacement of Right Lens with Synthetic Substitute, Percutaneous Approach (ICD-10-PCS; principal; 2021-03-09 10:00)
DX: H26.9 Unspecified cataract (principal)
CPT/HCPCS: 82962

== ENCOUNTER 2024-03-13 04:17 | Day surgery (SDC) | payer OTHER ==
[2024-03-10 12:52] VITALS: BMI 33.8
[2024-03-13] MEDS ORDERED: LIDOCAINE HCL 1%, 10 MG/ML (20ML VIAL) ONE (07:37)
[2024-03-13] MEDS ORDERED: HEPARIN NA (PORCINE) 5,000 UNITS/ML 1ML VIAL ONE (07:37)
[2024-03-13] MEDS ORDERED: MIDAZOLAM HCL 2 MG/2 ML SINGLE DOSE VIAL ONE (07:57)
[2024-03-13] MEDS: ceFAZolin SODIUM 1 GM VIAL IVPB ONE ×2 (08:35)
[2024-03-13] MEDS: LIDOCAINE HCL 1%, 10 MG/ML (50 mL VIAL) INF ONE ×2 (08:41)
[2024-03-13] MEDS ORDERED: NITROGLYCERIN 50 MG/10 ML VIAL IVPB ONE (09:22)
[2024-03-13] MEDS ORDERED: ONDANSETRON 4 MG/2 ML VIAL IVPUSH PRN (09:47)
[2024-03-13] MEDS ORDERED: oxyCODONE HCL 5 MG TABLET PO PRN (09:47)
[2024-03-13] MEDS ORDERED: LACTATED RINGERS SOLUTION 1,000 ML IV SCH (10:00)
[2024-03-13 11:29] VITALS: RESP 16; TEMP 97.7
[2024-03-13 12:46] VITALS: BP 150/78; PULSE 64
== END 2024-03-13 12:47 | disposition home or self-care (01) ==
LOC: JASU-SURG 04:17
PROVIDERS: ATTEND Surgery
PROC: 04HK3DZ Insertion of Intraluminal Device into Right Femoral Artery, Percutaneous Approach (ICD-10-PCS; 2024-03-13)
PROC: B40FYZZ Plain Radiography of Right Lower Extremity Arteries using Other Contrast (ICD-10-PCS; principal; 2024-03-13 08:00)
DX: I73.9 Peripheral vascular disease, unspecified (principal); E13.621 Other specified diabetes mellitus with foot ulcer; L97.519 Non-pressure chronic ulcer of other part of right foot with unspecified severity; N18.9 Chronic kidney disease, unspecified; E11.22 Type 2 diabetes mellitus with diabetic chronic kidney disease
CPT/HCPCS: 76000-TC-FY; 82962; 94760; C1760; C1769; J1644

== ENCOUNTER 2024-07-30 12:00 | Inpatient (IN) | payer OTHER ==
[2024-07-30] MEDS ORDERED: PIPERACILLIN/TAZOB 2.25 GM 2.25 GM/50 ML BAG IVPB ONE (13:02)
[2024-07-30] MEDS: PIPERACILLIN/TAZOB 2.25 GM 2.25 GM/50 ML BAG IVPB SCH ×2 (13:43→22:47)
[2024-07-30 13:56] LABS: HEMATOCRIT 46.9 % (35.4-49); HEMOGLOBIN 15.8 GM/dL (11.7-16.9); MCH 26.9 pg (25.7-33.7); MCHC 33.7 g/dl (32.0-35.9); MEAN CELL VOLUME 79.9 fl (80-96); MEAN PLT VOLUME 8.9 fl (7.5-11.1); PLATELET COUNT 131 10^3/uL (134-434); RBC 5.87 M/mm3 (4.00-5.60); RDW 15.5 % (11.9-15.9); WHITE BLOOD COUNT 11.8 K/mm3 (4.0-10.0)
[2024-07-30 14:21] LABS: POTASSIUM 3.7 mmol/L (3.5-5.1)
[2024-07-30 14:23] LABS: CALCIUM 9.8 mg/dL (8.5-10.1)
[2024-07-30 14:24] LABS: ALBUMIN 3.1 g/dl (3.4-5.0); BLOOD UREA NITROGEN 39.4 mg/dL (7-18)
[2024-07-30 14:27] LABS: CREATININE 2.2 mg/dL (0.55-1.3)
[2024-07-30 14:28] LABS: BILIRUBIN,TOTAL 0.9 mg/dL (0.2-1); TOT PROT 7.1 g/dl (6.4-8.2)
[2024-07-30 14:37] LABS: ERYTHROCYTE SEDIMENTATION RATE 25 mm/hr (0-20)
[2024-07-30 14:48] LABS: ANISOCYTOSIS 1+; MACROCYTOSIS 0
[2024-07-30 15:23] LABS: HIV INTERPRETATION NEGATIVE (NEGATIVE)
[2024-07-30] MEDS ORDERED: ACETAMINOPHEN 325 MG TABLET (FP) PO PRN (17:25)
[2024-07-30 18:44] VITALS: BMI 30.5
[2024-07-30] MEDS: hydrALAZINE HCL 50 MG TABLET (FP) PO SCH (22:12)
[2024-07-30] MEDS: HEPARIN NA (PORCINE) 5,000 UNITS/ML 1ML VIAL SQ SCH (22:12)
[2024-07-30] MEDS: CARVEDILOL 25 MG TABLET (FP) PO SCH (22:12)
[2024-07-30] MEDS: ATORVASTATIN CA 40 MG TABLET (FP) PO SCH (22:12)
[2024-07-30] MEDS: INSULIN ASPART SLIDING SCALE (NOVOLOG) 1 VIAL SQ SCH (22:29)
[2024-07-31 08:48] LABS: HEMATOCRIT 44.8 % (35.4-49); HEMOGLOBIN 15.1 GM/dL (11.7-16.9); MCHC 33.8 g/dl (32.0-35.9); MEAN PLT VOLUME 8.7 fl (7.5-11.1); PLATELET COUNT 116 10^3/uL (134-434); RBC 5.59 M/mm3 (4.00-5.60); RDW 15.9 % (11.9-15.9); WHITE BLOOD COUNT 7.5 K/mm3 (4.0-10.0)
[2024-07-31 09:11] LABS: POTASSIUM 3.5 mmol/L (3.5-5.1)
[2024-07-31 09:16] LABS: ALBUMIN 2.7 g/dl (3.4-5.0)
[2024-07-31 09:17] LABS: BLOOD UREA NITROGEN 41.9 mg/dL (7-18)
[2024-07-31 09:20] LABS: CREATININE 2.1 mg/dL (0.55-1.3); PHOSPHOROUS 2.8 mg/dL (2.5-4.9)
[2024-07-31 09:21] LABS: BILIRUBIN,TOTAL 0.9 mg/dL (0.2-1); TOT PROT 6.4 g/dl (6.4-8.2)
[2024-07-31] MEDS: LISINOPRIL 20 MG TABLET PO SCH (10:12)
[2024-07-31] MEDS: CLOPIDOGREL BISULFATE 75 MG TABLET (FP) PO SCH (10:12)
[2024-07-31] MEDS: amLODIPine BESYLATE 5 MG TABLET (FP) PO SCH (10:12)
[2024-07-31] MEDS: COLLAGENASE CLOSTRIDIUM HIST. 30 GRAMS TUBE TP SCH (17:32)
[2024-08-01 08:41] LABS: HEMATOCRIT 46.2 % (35.4-49); HEMOGLOBIN 15.3 GM/dL (11.7-16.9); MCH 26.8 pg (25.7-33.7); MEAN CELL VOLUME 81.1 fl (80-96); MEAN PLT VOLUME 8.3 fl (7.5-11.1); PLATELET COUNT 130 10^3/uL (134-434); RDW 15.7 % (11.9-15.9)
[2024-08-01 09:05] LABS: POTASSIUM 4.1 mmol/L (3.5-5.1)
[2024-08-01 09:19] LABS: CALCIUM 10.5 mg/dL (8.5-10.1)
[2024-08-01 09:20] LABS: BLOOD UREA NITROGEN 39.9 mg/dL (7-18)
[2024-08-01] MEDS: COLLAGENASE CLOSTRIDIUM HIST. 30 GRAMS TUBE TP SCH (11:40)
[2024-08-02 08:59] LABS: HEMATOCRIT 46.4 % (35.4-49); HEMOGLOBIN 15.1 GM/dL (11.7-16.9); MCH 26.5 pg (25.7-33.7); MCHC 32.6 g/dl (32.0-35.9); MEAN CELL VOLUME 81.4 fl (80-96); MEAN PLT VOLUME 8.1 fl (7.5-11.1); PLATELET COUNT 144 10^3/uL (134-434); RDW 15.5 % (11.9-15.9); WHITE BLOOD COUNT 5.3 K/mm3 (4.0-10.0)
[2024-08-02 09:14] LABS: ALBUMIN 2.9 g/dl (3.4-5.0); BLOOD UREA NITROGEN 38.3 mg/dL (7-18)
[2024-08-02 09:19] LABS: BILIRUBIN,TOTAL 0.8 mg/dL (0.2-1); TOT PROT 6.8 g/dl (6.4-8.2)
[2024-08-02] MEDS ORDERED: NICOTINE 7 MG/24 HOURS TOPICAL PATCH TD SCH (10:00)
[2024-08-04 10:23] LABS: HEMATOCRIT 49.8 % (35.4-49); HEMOGLOBIN 16.4 GM/dL (11.7-16.9); MCH 26.8 pg (25.7-33.7); MCHC 32.9 g/dl (32.0-35.9); MEAN CELL VOLUME 81.5 fl (80-96); MEAN PLT VOLUME 8.5 fl (7.5-11.1); PLATELET COUNT 170 10^3/uL (134-434); RBC 6.11 M/mm3 (4.00-5.60); RDW 15.4 % (11.9-15.9)
[2024-08-04 10:44] LABS: POTASSIUM 4.4 mmol/L (3.5-5.1)
[2024-08-04 10:48] LABS: BLOOD UREA NITROGEN 39.1 mg/dL (7-18); CALCIUM 10.6 mg/dL (8.5-10.1)
[2024-08-05] MEDS ORDERED: LIDOCAINE HCL 1%, 10 MG/ML (20ML VIAL) ONE (07:15)
[2024-08-05] MEDS ORDERED: BUPIVACAINE HCL/PF 0.5% (5MG/ML) 10 ML VIAL ONE (07:15)
[2024-08-05] MEDS ORDERED: oxyCODONE HCL 5 MG TABLET PO PRN ×2 (07:24→08:44)
[2024-08-05] MEDS ORDERED: ONDANSETRON 4 MG/2 ML VIAL IVPUSH PRN (07:24)
[2024-08-05] MEDS ORDERED: LACTATED RINGERS SOLUTION 1,000 ML IV SCH (07:30)
[2024-08-05] MEDS ORDERED: PROPOFOL 20 ML ONE (07:39)
[2024-08-05] MEDS ORDERED: MIDAZOLAM HCL 2 MG/2 ML SINGLE DOSE VIAL ONE (07:39)
[2024-08-05] MEDS: BUPIVACAINE HCL/PF 0.5% (5 MG/ML) 30 ML VIAL IJ ONE (07:43)
[2024-08-05] MEDS: LIDOCAINE HCL 1%, 10 MG/ML (20ML VIAL) NR ONE (07:43)
[2024-08-05] MEDS: ceFAZolin 2 GRAM PREMIX BAG IVPB ONE (07:56)
[2024-08-05] MEDS: amLODIPine BESYLATE 5 MG TABLET (FP) PO SCH (10:35)
[2024-08-05] MEDS: COLLAGENASE CLOSTRIDIUM HIST. 30 GRAMS TUBE TP SCH (10:35)
[2024-08-05] MEDS: CARVEDILOL 25 MG TABLET (FP) PO SCH (10:35)
[2024-08-05] MEDS: LISINOPRIL 20 MG TABLET PO SCH (10:36)
[2024-08-05 10:39] LABS: HEMATOCRIT 45.9 % (35.4-49); HEMOGLOBIN 15.5 GM/dL (11.7-16.9); MCH 27.3 pg (25.7-33.7); MCHC 33.8 g/dl (32.0-35.9); MEAN CELL VOLUME 80.7 fl (80-96); MEAN PLT VOLUME 7.9 fl (7.5-11.1); PLATELET COUNT 137 10^3/uL (134-434); RBC 5.69 M/mm3 (4.00-5.60); RDW 15.5 % (11.9-15.9); WHITE BLOOD COUNT 5.7 K/mm3 (4.0-10.0)
[2024-08-05 10:40] LABS: INR 1.08 (0.83-1.09); PROTHROMBIN TIME (PATIENT) 11.9 SEC (9.7-13.0)
[2024-08-05 11:01] LABS: POTASSIUM 4.6 mmol/L (3.5-5.1)
[2024-08-05 11:07] LABS: CALCIUM 10.6 mg/dL (8.5-10.1)
[2024-08-05 11:11] LABS: CREATININE 2.1 mg/dL (0.55-1.3)
[2024-08-05 11:22] LABS: BLOOD UREA NITROGEN 39.5 mg/dL (7-18)
[2024-08-05] MEDS: INSULIN ASPART SLIDING SCALE (NOVOLOG) 1 VIAL SQ SCH (11:53)
[2024-08-05] MEDS: hydrALAZINE HCL 50 MG TABLET (FP) PO SCH (14:45)
[2024-08-05] MEDS: PIPERACILLIN/TAZOB 3.375 GM 50 ML IVPB SCH (20:49)
[2024-08-05] MEDS: ATORVASTATIN CA 40 MG TABLET (FP) PO SCH (21:16)
[2024-08-05] MEDS ORDERED: PIPERACILLIN/TAZOB 2.25 GM 2.25 GM/50 ML BAG IVPB SCH (22:00)
[2024-08-06 10:05] LABS: BASO % 0.4 % (0-2.0); HEMATOCRIT 48.4 % (35.4-49); HEMOGLOBIN 15.7 GM/dL (11.7-16.9); LYMPH % 3.9 % (8-40); MCH 26.6 pg (25.7-33.7); MCHC 32.5 g/dl (32.0-35.9); MEAN CELL VOLUME 82.1 fl (80-96); MEAN PLT VOLUME 8.3 fl (7.5-11.1); MONO % 9.4 % (3.8-10.2); NEUT % 84.3 % (42.8-82.8); PLATELET COUNT 117 10^3/uL (134-434); RDW 15.5 % (11.9-15.9); WHITE BLOOD COUNT 7.6 K/mm3 (4.0-10.0)
[2024-08-06] MEDS: CLOPIDOGREL BISULFATE 75 MG TABLET (FP) PO SCH (10:12)
[2024-08-06 10:31] LABS: POTASSIUM 4.3 mmol/L (3.5-5.1)
[2024-08-06 10:37] LABS: ALBUMIN 3.1 g/dl (3.4-5.0); BLOOD UREA NITROGEN 33.4 mg/dL (7-18); CALCIUM 10.3 mg/dL (8.5-10.1); MAGNESIUM 2.2 mg/dL (1.8-2.4)
[2024-08-06 10:40] LABS: BILIRUBIN,TOTAL 0.5 mg/dL (0.2-1); CREATININE 2.2 mg/dL (0.55-1.3); TOT PROT 6.9 g/dl (6.4-8.2)
[2024-08-06 10:41] LABS: PHOSPHOROUS 2.8 mg/dL (2.5-4.9)
[2024-08-07 10:46] LABS: HEMATOCRIT 46.3 % (35.4-49); HEMOGLOBIN 14.9 GM/dL (11.7-16.9); MCH 26.4 pg (25.7-33.7); MCHC 32.2 g/dl (32.0-35.9); MEAN CELL VOLUME 81.9 fl (80-96); PLATELET COUNT 114 10^3/uL (134-434); RBC 5.65 M/mm3 (4.00-5.60); RDW 15.6 % (11.9-15.9); WHITE BLOOD COUNT 6.6 K/mm3 (4.0-10.0)
[2024-08-07] MEDS: HEPARIN NA (PORCINE) 5,000 UNITS/ML 1ML VIAL SQ SCH (21:55)
[2024-08-08 10:05] LABS: HEMATOCRIT 45.4 % (35.4-49); HEMOGLOBIN 15.2 GM/dL (11.7-16.9); MCH 27.2 pg (25.7-33.7); MCHC 33.6 g/dl (32.0-35.9); MEAN CELL VOLUME 80.8 fl (80-96); MEAN PLT VOLUME 7.9 fl (7.5-11.1); PLATELET COUNT 112 10^3/uL (134-434); RBC 5.61 M/mm3 (4.00-5.60); RDW 15.6 % (11.9-15.9); WHITE BLOOD COUNT 6.7 K/mm3 (4.0-10.0)
[2024-08-08 10:29] LABS: POTASSIUM 4.3 mmol/L (3.5-5.1)
[2024-08-08 10:32] LABS: CALCIUM 10.4 mg/dL (8.5-10.1)
[2024-08-08 10:33] LABS: ALBUMIN 3.1 g/dl (3.4-5.0); BLOOD UREA NITROGEN 33.7 mg/dL (7-18)
[2024-08-08 10:36] LABS: CREATININE 2.2 mg/dL (0.55-1.3)
[2024-08-08 10:38] LABS: BILIRUBIN,TOTAL 0.8 mg/dL (0.2-1); TOT PROT 7.1 g/dl (6.4-8.2)
[2024-08-10] MEDS: ACETAMINOPHEN 325 MG TABLET (FP) PO PRN (09:53)
[2024-08-10 10:10] LABS: BASO % 0.7 % (0-2.0); EOS % 1.7 % (0-4.5); HEMOGLOBIN 15.2 GM/dL (11.7-16.9); LYMPH % 7.4 % (8-40); MCH 26.8 pg (25.7-33.7); MEAN PLT VOLUME 9.4 fl (7.5-11.1); MONO % 13.7 % (3.8-10.2); NEUT % 76.5 % (42.8-82.8); PLATELET COUNT 106 10^3/uL (134-434); RBC 5.68 M/mm3 (4.00-5.60); RDW 15.8 % (11.9-15.9); WHITE BLOOD COUNT 6.9 K/mm3 (4.0-10.0)
[2024-08-10 10:22] LABS: POTASSIUM 4.3 mmol/L (3.5-5.1)
[2024-08-10 10:26] LABS: CALCIUM 10.5 mg/dL (8.5-10.1)
[2024-08-10 10:27] LABS: BLOOD UREA NITROGEN 36.4 mg/dL (7-18)
[2024-08-10 10:29] LABS: CREATININE 2.4 mg/dL (0.55-1.3)
[2024-08-10 10:31] LABS: BILIRUBIN,TOTAL 0.9 mg/dL (0.2-1)
[2024-08-10 22:29] VITALS: RESP 18
[2024-08-11] MEDS ORDERED: hydrALAZINE HCL 50 MG TABLET (FP) PO SCH (13:16)
[2024-08-11] MEDS: FUROSEMIDE 40 MG TABLET (FP) PO SCH (13:32)
[2024-08-11 14:36] VITALS: BP 134/85; PULSE 74; TEMP 98.4
== END 2024-08-11 17:22 | DRG 629 ==
LOC: JER 12:00 → JERBED 16:26 → J5S 18:12
PROVIDERS: ADMIT Internal Medicine; ATTEND Internal Medicine
PROC: 0QBL3ZX Excision of Right Tarsal, Percutaneous Approach, Diagnostic (ICD-10-PCS; principal; 2024-07-30)
PROC: 02HV33Z Insertion of Infusion Device into Superior Vena Cava, Percutaneous Approach (ICD-10-PCS; 2024-08-11)
PROC: B518ZZA Fluoroscopy of Superior Vena Cava, Guidance (ICD-10-PCS; 2024-08-11)
DX: E11.69 Type 2 diabetes mellitus with other specified complication (principal); L03.115 Cellulitis of right lower limb; M86.8X7 Other osteomyelitis, ankle and foot; L97.518 Non-pressure chronic ulcer of other part of right foot with other specified severity; B95.7 Other staphylococcus as the cause of diseases classified elsewhere; E11.621 Type 2 diabetes mellitus with foot ulcer; E11.51 Type 2 diabetes mellitus with diabetic peripheral angiopathy without gangrene; E78.5 Hyperlipidemia, unspecified; N28.1 Cyst of kidney, acquired; I25.10 Atherosclerotic heart disease of native coronary artery without angina pectoris; I12.9 Hypertensive chronic kidney disease with stage 1 through stage 4 chronic kidney disease, or unspecified chronic kidney disease; E11.22 Type 2 diabetes mellitus with diabetic chronic kidney disease; N18.9 Chronic kidney disease, unspecified; Z89.421 Acquired absence of other right toe(s)
CPT/HCPCS: 36415; 36569; 73630-TC-RT-FY; 73718-TC-RT; 80048; 80053; 80061; 82306; 82550; 82962; 83036; 83735; 83970; 84100; 85025; 85027; 85610; 85651; 86140; 86803; 86850; 86900; 86901; 87040; 87070; 87075; 87076; 87077; 87186; 87205; 87389; 94760; 97116-GP; 97161-GP; 99285-25; G0463-25; J1644